=== PATIENT | female | born 1995 | race Caucasian/White ===

== ENCOUNTER 2023-02-25 08:06 | Outpatient (CLI) | payer MEDICAID, SELFPAY ==
--- NOTE | 2023-02-25 08:15 | CRLHL7_ITS ---
For Patients: As a result of the Century Cures Act, medical imaging exams and procedure reports are released immediately into your electronic medical record. You may view this report before your referring provider. If you have questions, please contact your health care provider. CLINICAL HISTORY: Dysmenorrhea TECHNIQUE: Real time, medina scale images were acquired of the pelvis using a transabdominal and transvaginal approach. Color Doppler analysis was performed of the ovaries. FINDINGS: The uterus measures 4.5 x 4.9 x 3.4 centimeters endometrium measures 3 millimeters. The right ovary measures 4 x 4.6 x 2.2 centimeters left ovary measures 3.8 x 2.1 x 2.4 centimeters. Two adjacent right parovarian cyst measuring 1.5 centimeters and 1.1 centimeters. Possible complex hypoechoic area in the left ovary. IMPRESSION: 3 millimeter endometrial stripe. Two hypoechoic right paraovarian cysts measuring up to 1.5 cm. Possible complex hypoechoic area in the left ovary. Follow-up ultrasound in 8-12 weeks could be considered. Dictated by Kristie Ward MD @ 02/25/2023 10:02:16 AM (Electronically Signed)
== END 2023-02-25 08:07 | disposition home or self-care (01) ==
PROVIDERS: PCP Physician Assistant Medical; Visit Provider Physician Assistant
DX: N94.6 Dysmenorrhea, unspecified (principal); R93.89 Abnormal findings on diagnostic imaging of other specified body structures; N83.201 Unspecified ovarian cyst, right side; N83.202 Unspecified ovarian cyst, left side
CPT/HCPCS: 76830; 76856

== ENCOUNTER 2023-04-03 14:21 | Outpatient (CLI) | payer MEDICAID, SELFPAY | END 2023-04-03 14:22 | disposition home or self-care (01) | LOC: LKVREF 14:21 | PROVIDERS: PCP Physician Assistant Medical; Visit Provider Physician Assistant Medical | DX: Z01.818 Encounter for other preprocedural examination (principal); Z86.14 Personal history of Methicillin resistant Staphylococcus aureus infection | CPT/HCPCS: 87081 ==

== ENCOUNTER 2023-08-30 15:45 | Outpatient (CLI) | payer MEDICAID, SELFPAY | END 2023-08-30 15:46 | disposition home or self-care (01) | PROVIDERS: PCP Physician Assistant Medical; Visit Provider Obstetrics & Gynecology | DX: N92.0 Excessive and frequent menstruation with regular cycle (principal) | CPT/HCPCS: 83498; 84146; 84270; 84402; 84403; 84443 ==

== ENCOUNTER 2023-09-03 07:17 | Outpatient (CLI) | payer MEDICAID, SELFPAY ==
--- NOTE | 2023-09-03 07:15 | CRLHL7_ITS ---
For Patients: As a result of the Century Cures Act, medical imaging exams and procedure reports are released immediately into your electronic medical record. You may view this report before your referring provider. If you have questions, please contact your health care provider. INDICATION: menorrhagia COMPARISON: 02/25/2023 TECHNIQUE: 2D medina scale and color Doppler images were acquired of the pelvis using a transabdominal and transvaginal approach. FINDINGS: Sonographic images demonstrate a normal size and smooth outer contour of the uterus. Uterus measures 6.9 cm in length by 3.3 cm in AP diameter by 4.4 cm in transverse dimension. The myometrium has a normal uniform echotexture. The endometrial lining measures 6 mm in composite thickness. The right ovary measures 3.6 x 2.4 x 2.2 cm in size and the left ovary measures 4.0 x 2.6 x 3.3 cm. Simple cyst right ovary measuring 1.7 x 1.4 x 1.2 cm. A collapsing right ovarian cyst also appears to be present measuring 2.1 x 1.0 x 1.0 cm. The ovaries demonstrate normal arterial and venous blood flow on color Doppler analysis. There are no suspicious fluid collections within the cul-de-sac. IMPRESSION: 6 millimeter endometrium. No endometrial fluid. No uterine fibroid. Dictated by Tanmay Wren MD @ 09/03/2023 10:21:12 AM (Electronically Signed)
== END 2023-09-03 07:18 | disposition home or self-care (01) ==
PROVIDERS: PCP Physician Assistant Medical; Visit Provider Obstetrics & Gynecology
DX: N92.0 Excessive and frequent menstruation with regular cycle (principal); R93.89 Abnormal findings on diagnostic imaging of other specified body structures
CPT/HCPCS: 76830; 76856

== ENCOUNTER 2024-11-12 10:34 | Emergency (ER) | payer OTHER, SELFPAY ==
[2024-11-12 10:51] VITALS: BP 146/88; PULSE 73; RESP 16; TEMP 36.8; O2SAT 98; BMI 37.1
[2024-11-12 11:30] LABS: Appearance Urine Cloudy (Clear); Bilirubin Urine Negative (Negative); Blood Urine 3+ (Negative); Color Urine Dark yellow (Yellow); Glucose Urine Negative (Negative); Ketones Urine Negative (Negative); Leukocyte Esterase Urine Negative (Negative); Nitrite Urine Negative (Negative); Protein Urine 1+ (Negative); Specific Gravity Urine 1.025 (1.000-1.030); Urobilinogen Urine 0.2 (0.2-1.0)
[2024-11-12 11:56] VITALS: BP 129/76; PULSE 74; RESP 18; TEMP 36.8; O2SAT 98
[2024-11-12 12:03] LABS: RBC Urine 50-100 (0-2); Squamous Epithelial Cell Urine Few (None-Few)
[2024-11-12 12:04] LABS: Bacteria Urine Few
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
[2024-11-12 12:37] LABS: Ur HCG Qualitative* Negative (Negative)
--- NOTE | 2024-11-12 12:41 | CRLHL7_ITS ---
For Patients: As a result of the Century Cures Act, medical imaging exams and procedure reports are released immediately into your electronic medical record. You may view this report before your referring provider. If you have questions, please contact your health care provider. INDICATION: IUD placement, increased bleeding and pelvic pain. TECHNIQUE: Ultrasound pelvis transabdominal and transvaginal for better assessment or to better visualize the endometrium. Real-time sonographic images with spectral and color Doppler imaging of the ovaries were obtained. COMPARISON: September 03, 2023. FINDINGS: Uterus: 6.5 x 4.0 x 5.5 cm. Normal echotexture of the myometrium. No masses. Endometrium: Transvaginal imaging was performed to better evaluate the endometrium. IUD which appears to be in appropriate position. Right ovary 4.7 x 1.7 x 2.7 centimeters. Left ovary 4.0 x 1.4 x 2.8 centimeters. Tiny 1.6 centimeter known right simple paraovarian cyst. No ovarian or adnexal masses. Normal arterial and venous blood flow is demonstrated in both ovaries. Cul-de-sac: Trace free fluid. IMPRESSION: IUD which appears to be in appropriate position. Otherwise, unremarkable pelvic ultrasound for age. Dictated by Carlton Biggs MD @ 11/12/2024 1:41:34 PM (Electronically Signed)
[2024-11-12 13:26] LABS: Chloride* 106 mmol/L (96-114); Potassium* 4.2 mmol/L (3.6-5.1); Sodium* 139 mmol/L (135-149)
[2024-11-12 13:29] VITALS: BP 133/93; PULSE 69; RESP 18; TEMP 36.6; O2SAT 100
[2024-11-12 13:29] LABS: Anion Gap 7 mEq/L (7-15); Blood Urea Nitrogen* 12 mg/dL (5-24); Carbon Dioxide* 26 mmol/L (20-32); Creatinine* 0.6 mg/dL (0.5-1.5); Est. Creatinine Clearance* 127.18; Estimated Glomerular Filt Rate 123 ml/min; Glucose* 88 mg/dL (60-115)
[2024-11-12 13:30] LABS: Calcium* 9.1 mg/dL (8.4-10.6)
[2024-11-12] MEDS: KETOROLAC 15 MG/ML inj IVP (13:37)
[2024-11-12 14:18] LABS: Basophils Absolute Auto 0.03 K/uL (0.00-0.30); Basophils Percent Auto 0.4 % (0.0-3.0); Eosinophils Absolute Auto 0.13 K/uL (0.00-0.50); Eosinophils Percent Auto 1.8 % (0.0-7.0); Hematocrit 41.5 % (33.0-51.0); Hemoglobin* 14.2 gm/dL (12.0-16.0); Immature Granulocytes Abs Auto 0.02 K/uL (0.00-0.30); Immature Granulocytes Pct Auto 0.3 %; Lymphocytes Absolute Auto 2.36 K/uL (0.90-2.90); Lymphocytes Percent Auto 32.1 % (20-44); Mean Corpuscular HGB Conc 34 gm/dL (32-36); Mean Corpuscular Hemoglobin 29 pg (26-34); Mean Corpuscular Volume 85 fL (80-100); Monocytes Percent Auto 7.3 % (0.0-11.0); Neutrophils Absolute Auto 4.27 K/uL (1.7-7.0); Neutrophils Percent Auto 58.1 % (42.0-72.0); Platelet Count* 219 K/uL (140-440); RDW Coefficient of Variation % 12.1 % (11.5-15.5); Red Blood Count 4.91 m/uL (4.00-5.20); White Blood Count* 7.35 K/uL (4.50-11.00)
[2024-11-12 14:26] LABS: Slide Review Reflex No
== END 2024-11-12 15:03 | disposition home or self-care (01) ==
PROVIDERS: Emergency Provider Family Medicine; PCP Physician Assistant Medical
DX: N93.9 Abnormal uterine and vaginal bleeding, unspecified (principal); N80.9 Endometriosis, unspecified; R10.2 Pelvic and perineal pain; Z97.5 Presence of (intrauterine) contraceptive device
CPT/HCPCS: 36415; 76830; 80048; 81001; 81025; 84443; 85025; 87086; 93976; 96374; 99284; J1885

== ENCOUNTER 2025-02-08 13:30 | Outpatient (CLI) | payer OTHER, SELFPAY | END 2025-02-08 13:31 | disposition home or self-care (01) | PROVIDERS: PCP Physician Assistant Medical; Visit Provider Physician Assistant Medical | DX: R19.7 Diarrhea, unspecified (principal); Z13.220 Encounter for screening for lipoid disorders; Z13.29 Encounter for screening for other suspected endocrine disorder; Z11.4 Encounter for screening for human immunodeficiency virus [HIV]; Z11.59 Encounter for screening for other viral diseases | CPT/HCPCS: 80053; 80061; 84443; 86140; 86231; 86258; 86364; 86703; 86803 ==

== ENCOUNTER 2025-04-30 08:55 | Outpatient (CLI) | payer OTHER, SELFPAY | END 2025-04-30 08:56 | disposition home or self-care (01) | LOC: NFLDREF 05-05 00:18 | PROVIDERS: PCP Physician Assistant Medical; Referring Provider Physician Assistant Medical; Visit Provider Physician Assistant Medical | DX: R17 Unspecified jaundice (principal) | CPT/HCPCS: 80076 ==